=== PATIENT | male | born 1980 | race Caucasian/White ===

== ENCOUNTER 2019-10-18 12:16 | Emergency (ER) | payer OTHER ==
[~2019-10-18] VITALS: Ht 172.7 cm; Wt 75.0 kg
[~2019-10-18 12:16] MED LIST: ASPIRIN 81M81 MG/TA2; DEPAKOTE 250MG250 MG PO; LORTAB 7.5/5001 TAB PO; MINIPRESS2 MG PO; NORCO 325 MG-51 TAB PO; PERCOCET 325 MG1 TA2 PO; RITALIN10 MG; SEROQUEL 1100 MG/TAB PO; SEROQUEL 2525 MG/TAB; SEROQUEL300 MG PO; WELLBUTRIN 100100 MG; [UNRECOGNIZED DRUG - OTHER] PO
[2019-10-18 12:53] VITALS: BP 140/91; TEMP 98.7
[2019-10-18 13:58] LABS: COLLECTION METHOD CLEAN CATCH
[2019-10-18 14:03] LABS: BASO % 0.3 % (0.0-2.0); EOS # 0.1 (0.0-0.7); EOS % 1.5 % (0-4.0); GRAN # 3.5 (1.4-6.5); GRAN % 58.6 % (42.2-75.2); HEMATOCRIT 40.9 % (42.0-52.0); HEMOGLOBIN 14.1 g/dl (13.5-18.0); LYMPH # 1.6 (1.2-3.4); LYMPH % 26.2 % (20.0-51.0); MEAN CELL VOLUME 85 fl (80.0-100.0); MEAN CORPUSCULAR HEMOGLOBIN 29 pg (27.0-31.0); MEAN CORPUSCULAR HGB CONC 35 g/dl (33.0-37.0); MEAN PLATELET VOLUME 9.3 fl (7.4-10.4); MONO # 0.8 (0.1-0.6); MONO % 13.2 % (1.7-9.3); PLATELET COUNT 272 K/mm3 (130-400); RED BLOOD COUNT 4.81 M/mm3 (4.20-5.60); REDCELL DISTRIBUTION WIDTH-CV 13.3 % (11.5-14.5)
[2019-10-18 14:10] LABS: MUCOUS Present /lpf; PH 6 (5-8); SQUAMOUS EPITHELIAL None Seen /hpf; URINE APPEARANCE Hazy; URINE BACTERIA None Seen /hpf; URINE BILIRUBIN Negative (NEGATIVE); URINE BLOOD Negative (NEGATIVE); URINE COLOR Yellow; URINE GLUCOSE Negative (NEGATIVE); URINE KETONE Negative (NEGATIVE); URINE LEUKOCYTE ESTERASE Negative (NEGATIVE); URINE NITRATE Negative (NEGATIVE); URINE PROTEIN(semi-quant) Negative (NEGATIVE); URINE RBC 0-2 /hpf; URINE UROBILINOGEN Negative (NEGATIVE)
[2019-10-18 14:11] LABS: CALCIUM 9.2 mg/dL (8.4-10.2); CREATININE, serum 0.94 (0.66-1.25); POTASSIUM 4.4 mmol/L (3.4-5.0)
[2019-10-18] MEDS ORDERED: CIPRO 500MG TA500 MG PO (15:48)
[2019-10-18] MEDS ORDERED: NORCO 325 MG-51 TAB PO (15:48)
[2019-10-18 16:02] VITALS: PULSE 71
== END 2019-10-18 16:02 | disposition home or self-care (01) ==
LOC: COL.ER 12:16
PROVIDERS: Emergency Medicine
DX: R10.30 Lower abdominal pain, unspecified (principal); Z79.82 Long term (current) use of aspirin
CPT/HCPCS: J1170; J1885; Q9967

== ENCOUNTER 2020-02-13 22:43 | Emergency (ER) | payer OTHER, MEDICARE ==
[~2020-02-13] VITALS: Ht 172.7 cm; Wt 72.7 kg
[~2020-02-13 22:43] MED LIST changes: +CIPRO 500MG TA500 MG PO
[2020-02-13 22:49] VITALS: BP 126/81; PULSE 94; TEMP 98.1
[2020-02-13] MEDS ORDERED: ZENZEDI5 MG (22:55)
[2020-02-13] MEDS ORDERED: PROZAC 10MG10 MG (22:55)
[2020-02-13] MEDS ORDERED: SEROQUEL50 MG (22:56)
[2020-02-13] MEDS ORDERED: ATARAX 10MG10 MG/TAB (22:56)
[2020-02-13] MEDS ORDERED: ATIVAN 0.50.5 MG/TAB (22:57)
[2020-02-13] MEDS ORDERED: IMITREX 25MG TA25 MG (22:57)
[2020-02-13] MEDS ORDERED: DOXYCYCLINE 10100 MG PO (23:08)
== END 2020-02-13 23:29 | disposition home or self-care (01) ==
LOC: COL.ER 22:43
DX: S50.862A Insect bite (nonvenomous) of left forearm, initial encounter (principal); Z88.8 Allergy status to other drugs, medicaments and biological substances; W57.XXXA Bitten or stung by nonvenomous insect and other nonvenomous arthropods, initial encounter

== ENCOUNTER 2020-09-08 19:11 | Emergency (ER) | payer MEDICARE, OTHER ==
[~2020-09-08] VITALS: Ht 172.7 cm; Wt 72.7 kg
[~2020-09-08 19:11] MED LIST changes: +ATARAX 10MG10 MG/TAB; +ATIVAN 0.50.5 MG/TAB; +DOXYCYCLINE 10100 MG PO; +IMITREX 25MG TA25 MG; +PROZAC 10MG10 MG; +SEROQUEL50 MG; +ZENZEDI5 MG
[2020-09-08 19:27] VITALS: BP 146/99; PULSE 98; TEMP 98.3
== END 2020-09-08 21:00 | disposition home or self-care (01) ==
LOC: COL.ER 19:11
DX: T15.01XA Foreign body in cornea, right eye, initial encounter (principal); Z88.8 Allergy status to other drugs, medicaments and biological substances; W45.8XXA Other foreign body or object entering through skin, initial encounter

== ENCOUNTER 2021-07-13 19:35 | Inpatient (IN) | payer MEDICARE, OTHER ==
[~2021-07-13] VITALS: Ht 172.7 cm; Wt 81.8 kg
[2021-07-13 20:01] LABS: BASO % 0.3 % (0.0-2.0); EOS # 0.2 K/mm3 (0.0-0.7); EOS % 1.9 % (0-4.0); GRAN # 8.1 K/mm3 (1.4-6.5); GRAN % 73.2 % (42.2-75.2); HEMATOCRIT 38.7 % (42.0-52.0); HEMOGLOBIN 13.4 g/dl (13.5-18.0); LYMPH # 1.4 K/mm3 (1.2-3.4); MEAN CELL VOLUME 85 fl (80.0-100.0); MEAN CORPUSCULAR HEMOGLOBIN 30 pg (27.0-31.0); MEAN CORPUSCULAR HGB CONC 35 g/dl (33.0-37.0); MONO # 1.2 K/mm3 (0.1-0.6); MONO % 10.8 % (1.7-9.3); PLATELET COUNT 327 K/mm3 (130-400); RED BLOOD COUNT 4.53 M/mm3 (4.20-5.60); REDCELL DISTRIBUTION WIDTH-CV 13.5 % (11.5-14.5)
[2021-07-13 20:18] LABS: ALANINE AMINOTRANSFERASE 70 U/L (0-55); ALBUMIN 4.3 gm/dL (3.5-5.0); ALKALINE PHOSPHATASE 62 U/L (40-150); ANION GAP 13 mmol/L (7-16); AST,SGOT 96 U/L (5-34); BILIRUBIN,TOTAL 0.5 mg/dL (0.2-1.2); BLOOD UREA NITROGEN 18 mg/dL (9-21); CALCIUM 9.7 mg/dL (8.4-10.2); CARBON DIOXIDE 24 mmol/L (22-29); CHLORIDE 102 mmol/L (98-107); CREATININE, serum 1.35 mg/dL (0.72-1.25); GLUCOSE 96 mg/dL (70-99); POTASSIUM 4.7 mmol/L (3.5-4.5); SODIUM 139 mmol/L (136-145); TOTAL PROTEIN 7.4 gm/dL (6.2-8.1)
[2021-07-13 20:19] LABS: ALCOHOL(ethanol),MEDICAL < 10 mg/dL (0-10)
[2021-07-13] MEDS ORDERED: EXCEDRIN1 TAB PO (23:16)
[2021-07-13] MEDS ORDERED: INDERAL LA 80MG80 MG PO (23:16)
[2021-07-13] MEDS ORDERED: MAGIC MOUTH PO (23:18)
[2021-07-13] MEDS ORDERED: OPTIVE 0.5%-0.915 ML OP (23:19)
[2021-07-13] MEDS ORDERED: KLONOPIN 0.5MG0.5 MG PO (23:20)
[2021-07-13] MEDS ORDERED: DEPAKOTE ER 50500 MG PO (23:21)
[2021-07-13] MEDS ORDERED: NUPERCAINAL OIN30 GM RC (23:21)
[2021-07-13] MEDS ORDERED: PEPCID 20MG TAB20 MG PO (23:21)
[2021-07-13] MEDS ORDERED: PROZAC 10MG10 MG PO (23:22)
[2021-07-13] MEDS ORDERED: HALDOL 2MG T2 MG/TAB PO (23:22)
[2021-07-13] MEDS ORDERED: ANUSOL HC CREAM30 GM TP (23:23)
[2021-07-13] MEDS ORDERED: NIZORAL CR 30GM TOP (23:23)
[2021-07-13] MEDS ORDERED: SYNTHROID0.05 MG/TA PO (23:24)
[2021-07-13] MEDS ORDERED: REMERON30 MG PO (23:24)
[2021-07-13] MEDS ORDERED: NAPROSYN500 MG PO (23:24)
[2021-07-13] MEDS ORDERED: PHENERGAN 25 TA25 MG PO (23:25)
[2021-07-13] MEDS ORDERED: MIRALAX PA17 GM/Dose PO (23:25)
[2021-07-13] MEDS ORDERED: SEROQUEL400 MG PO (23:26)
[2021-07-13] MEDS ORDERED: TUCKS50% TP (23:27)
[2021-07-13] MEDS ORDERED: DEEP SEA 45 ML45 ML NS (23:27)
[2021-07-13] MEDS ORDERED: IMITREX100 MG PO (23:27)
[2021-07-14] VITALS (9 sets, daily range): BP systolic 104–117; BP diastolic 46–68; PULSE 74–101; TEMP 97.9–99.2
[2021-07-14 05:23] LABS: BASO % 0.2 % (0.0-2.0); EOS # 0.1 K/mm3 (0.0-0.7); EOS % 0.6 % (0-4.0); GRAN % 74.5 % (42.2-75.2); LYMPH # 0.9 K/mm3 (1.2-3.4); LYMPH % 9.8 % (20.0-51.0); MEAN CELL VOLUME 88 fl (80.0-100.0); MEAN CORPUSCULAR HEMOGLOBIN 30 pg (27.0-31.0); MEAN CORPUSCULAR HGB CONC 34 g/dl (33.0-37.0); MEAN PLATELET VOLUME 9.1 fl (7.4-10.4); MONO # 1.4 K/mm3 (0.1-0.6); MONO % 14.5 % (1.7-9.3); PLATELET COUNT 242 K/mm3 (130-400); RED BLOOD COUNT 4.05 M/mm3 (4.20-5.60)
[2021-07-14 05:24] LABS: HEMATOCRIT 35.5 % (42.0-52.0)
[2021-07-14 05:30] LABS: INR 1.2 (0.8-3.0); PROTHROMBIN TIME 13.2 SECONDS (9.7-12.8)
--- NOTE | 2021-07-14 06:39 | NUR ---
PT ARRIVED FROM ED PER BED. DR MOMIN HERE. TOOK OUT TRACTION FROM UNDER PT. SEE MAR FOR PAIN MED GIVEN. O2 2L N/C. ABLE TO OBTAIN FAINT LT PEDAL PULSES WITH DOPPLER,
[2021-07-14 08:33] LABS: CALCIUM 8.9 mg/dL (8.4-10.2); CREATININE, serum 1.1 mg/dL (0.72-1.25); POTASSIUM 4.3 mmol/L (3.5-4.5)
--- NOTE | 2021-07-14 09:15 | NUR ---
Attempted x1 to obtain EKG from [facility], states they are busy and will obtain EKG if time allows.
--- NOTE | 2021-07-14 12:12 | NUR ---
To surgery with surgical staff at this time. Howard catheter placed per Drs order at 1115, immediate return of clear castillo urine returned. Surgical consent signed by spouse with patients verbal permission. Report called to Efren Cordoba CRNA.
--- NOTE | 2021-07-14 14:03 | NUR ---
bag worker met with patient's Diana ([phone]) due to the patient being in surgery. reports that prior to this, the patient has been fully independent with his ADL's and does not utilize any DME to assist with mobility. [facility] [place] [facility]. [facility]. Unknown at this time if Dr. Grullon is going to set up therapy through his clinic or if the patient will need outpatient therappy through . Discharge plan: Pending PT/OT rec's.
[2021-07-14] MEDS ORDERED: TYLENOL 325MG325 MG PO (14:44)
[2021-07-14] MEDS ORDERED: NIZORAL SHAMPO120 M1 TP (14:47)
[2021-07-14] MEDS ORDERED: [UNRECOGNIZED DRUG - OTHER] TP (14:48)
[2021-07-14] MEDS ORDERED: PATADAY5 ML OP (14:49)
--- NOTE | 2021-07-14 17:37 | NUR ---
Patient returns post op at 1650. Left hip dressing CDI. Patient drowsy, awakens to pain stimuli. Post op checks initiated. Spouse at bedside.
--- NOTE | 2021-07-14 19:00 | NUR ---
PT RESTING BUT WAKES IN PAIN. SEE MAR FOR ANY PAIN MEDS GIVEN. 02 2L NC. AT BEDSIDE. VERY SUPPORTIVE. PT STARTING TO HAVE FEELING IN LEGS. FEET COOL TO TOUCH. LT PEDAL PULSE PRESENT WITH DOPPLER. TOES PALE BUT PINK. ABLE TO MOVE TOES. CALL LIGHT IN REACH. BED ALARM SET.
--- NOTE | 2021-07-14 22:17 | NUR ---
UA OBTAINED FROM AGUILAR AND SENT TO LAB.
[2021-07-14 22:24] LABS: COLLECTION METHOD CLEAN CATCH
[2021-07-14 22:31] LABS: MUCOUS Present /lpf; PH 5 (5-8); SQUAMOUS EPITHELIAL 0-2 /hpf; URINE APPEARANCE Hazy; URINE BACTERIA None Seen /hpf; URINE BILIRUBIN Negative (NEGATIVE); URINE BLOOD Negative (NEGATIVE); URINE COLOR Yellow; URINE GLUCOSE Negative (NEGATIVE); URINE KETONE Negative (NEGATIVE); URINE LEUKOCYTE ESTERASE Negative (NEGATIVE); URINE NITRATE Negative (NEGATIVE); URINE PROTEIN(semi-quant) 1+ (NEGATIVE); URINE UROBILINOGEN Negative (NEGATIVE)
[2021-07-15] VITALS (11 sets, daily range): BP systolic 84–111; BP diastolic 44–58; PULSE 67–83; TEMP 97.6–98.9
--- NOTE | 2021-07-15 04:02 | NUR ---
PT HAS HX SLEEP APNEA. O2 SAT MONITORING PRN DONE. PT WAKES TO SPEECH BUT RETURNS TO SLEEP. PAIN UNDER CONTROL. LT PEDAL PULSE FAINT BUT TOES WARM. ABLE TO MOVE TOES.
--- NOTE | 2021-07-15 05:17 | NUR ---
Pt wakes to verbal stimuli. Able to take ex tylenol w/o difficulty.
[2021-07-15 09:30] LABS: HEMATOCRIT 23.6 % (42.0-52.0)
[2021-07-15 09:47] LABS: ALBUMIN 2.9 gm/dL (3.5-5.0); CALCIUM 7.8 mg/dL (8.4-10.2); CREATININE, serum 1.04 mg/dL (0.72-1.25); PHOSPHOROUS 3.1 mg/dL (2.3-4.7); POTASSIUM 4.2 mmol/L (3.5-4.5)
--- NOTE | 2021-07-15 10:15 | NUR ---
Patient awake. He worked with therapy & pain increased. 06/25. Roxicodone per orders. aware of hypotension. Bolus per orders. Inderal held. Call to & he was made aware of H&H & okayed to give Lovenox. IVf per orders.
--- NOTE | 2021-07-15 12:40 | NUR ---
Patient at bedside. lunch ordered. Plan of care reivewed. Spoke to Dr.Jain ansariing patient sedation. roxicocodne dose decreased. Scheduled tyelnol given. O2 needs decreased. Will monitor.
[2021-07-15 13:30] LABS: HEMATOCRIT 22.9 % (42.0-52.0); HEMOGLOBIN 7.9 g/dl (13.5-18.0)
--- NOTE | 2021-07-15 15:44 | NUR ---
Patient resting soundly. Blood transfusion started per orders. We reviewed signs & symptoms of a reaction. Blood per policy. verified with Yola Kelly
--- NOTE | 2021-07-15 19:00 | NUR ---
PT RESTING COMFORTABLY AT THIS TIME. O2 3L NC. NO DISTRESS.
--- NOTE | 2021-07-15 19:06 | NUR ---
Patient resting in bed. Patient tolerated blood transfusion. Vitals stable. Patient at bedside & we assisted patient with hygiene. Patient brushed his teeth. Warm wipes for hygiene. Patient assisted use warm shower cap & combed patients hair. Patient cuevas removed per request & orders. Teds off for a break. Scds on. Ivf per orders. Ice pack to left thigh. Thigh dressing CDI. Bedside report to Radha MORRIS
[2021-07-15 21:04] LABS: HEMATOCRIT 28.7 % (42.0-52.0); HEMOGLOBIN 9.9 g/dl (13.5-18.0)
--- NOTE | 2021-07-15 21:17 | NUR ---
SEE MAR FOR PAIN MED GIVEN.
[2021-07-16] VITALS (7 sets, daily range): BP systolic 104–142; BP diastolic 53–70; PULSE 81–104; TEMP 98.3–99.4
--- NOTE | 2021-07-16 00:45 | NUR ---
PT ATTEMPTED TO VOID. UNABLE AT THIS TIME.. NO DISTENTION NOTED.
--- NOTE | 2021-07-16 02:28 | NUR ---
PT UNABLE TO VOID POST AGU[facility] DC. BLADDER SCANNED WITH 760CC RETENTION. CALLED MAR LOYD FOR STRAT CATH ORDER. STRAT CATH WITH IMMEDIATE RETURN OF CLEAR YELLOW 1000CC URINE.
--- NOTE | 2021-07-16 06:45 | NUR ---
Pt. resting in bed w/ eyes closed. This RN introduced self to pt. and explained his night nurse was going home. Pt. denies needs, call light and belongings in reach.
[2021-07-16 09:08] LABS: BASO % 0.4 % (0.0-2.0); EOS # 0.2 K/mm3 (0.0-0.7); EOS % 4.7 % (0-4.0); GRAN # 3.1 K/mm3 (1.4-6.5); GRAN % 61.2 % (42.2-75.2); LYMPH # 0.9 K/mm3 (1.2-3.4); LYMPH % 18.1 % (20.0-51.0); MEAN CELL VOLUME 87 fl (80.0-100.0); MEAN CORPUSCULAR HGB CONC 34 g/dl (33.0-37.0); MEAN PLATELET VOLUME 9.5 fl (7.4-10.4); MONO # 0.8 K/mm3 (0.1-0.6); MONO % 15.4 % (1.7-9.3); PLATELET COUNT 149 K/mm3 (130-400); RED BLOOD COUNT 2.92 M/mm3 (4.20-5.60)
[2021-07-16 09:12] LABS: HEMATOCRIT 25.5 % (42.0-52.0); HEMOGLOBIN 8.6 g/dl (13.5-18.0); MEAN CORPUSCULAR HEMOGLOBIN 29 pg (27.0-31.0)
[2021-07-16 09:24] LABS: ALBUMIN 2.5 gm/dL (3.5-5.0); CALCIUM 7.6 mg/dL (8.4-10.2); CREATININE, serum 0.71 mg/dL (0.72-1.25); MAGNESIUM 1.8 mg/dL (1.6-2.6); PHOSPHOROUS 2.1 mg/dL (2.3-4.7)
[2021-07-16 14:14] LABS: HEMOGLOBIN 9.1 g/dl (13.5-18.0)
--- NOTE | 2021-07-16 18:18 | NUR ---
Pt. progressing w/ plan of care. IVF discontinued today. Supportive visited today. Pt. reports pain is tolerable when at rest. Pt. makes needs known. Good urine output today. Call light and belongings in reach.
[2021-07-16 19:26] LABS: HEMATOCRIT 24.5 % (42.0-52.0); HEMOGLOBIN 8.6 g/dl (13.5-18.0)
--- NOTE | 2021-07-16 20:30 | NUR ---
PT RESTING IN BED AWAKE AND ALERT. TEDS/ SCD'S ON BILAT. PT HAS GOOD SENSATION TO LLE. ABLE TO MOVE ANKLE. NO RESP DISTRESS. O2 2L NC. HX YELITZA. SEE MAR FOR OXYCODONE GIVEN. PT VOIDING W/O DIFFICULTY PER URINAL. REPOSITIONED FOR COMFORT. PT INSTRUCTED TO USE IS FREQ X10 EACH TIME. PT AGREEABLE. CALL LIGHT IN REACH.
[2021-07-17] VITALS (7 sets, daily range): BP systolic 115–138; BP diastolic 60–73; PULSE 70–107; TEMP 98.1–99.6
[2021-07-17 06:12] LABS: BASO % 0.2 % (0.0-2.0); EOS # 0.3 K/mm3 (0.0-0.7); EOS % 5.9 % (0-4.0); GRAN % 57.1 % (42.2-75.2); LYMPH # 1.2 K/mm3 (1.2-3.4); MEAN CELL VOLUME 85 fl (80.0-100.0); MEAN CORPUSCULAR HGB CONC 35 g/dl (33.0-37.0); MEAN PLATELET VOLUME 9.4 fl (7.4-10.4); MONO # 0.8 K/mm3 (0.1-0.6); MONO % 14.4 % (1.7-9.3); PLATELET COUNT 171 K/mm3 (130-400); RED BLOOD COUNT 2.94 M/mm3 (4.20-5.60); REDCELL DISTRIBUTION WIDTH-CV 13.9 % (11.5-14.5)
[2021-07-17 06:15] LABS: HEMOGLOBIN 8.7 g/dl (13.5-18.0); MEAN CORPUSCULAR HEMOGLOBIN 30 pg (27.0-31.0)
[2021-07-17 06:43] LABS: ALBUMIN 2.5 gm/dL (3.5-5.0); CREATININE, serum 0.73 mg/dL (0.72-1.25); MAGNESIUM 1.8 mg/dL (1.6-2.6); PHOSPHOROUS 3.3 mg/dL (2.3-4.7); POTASSIUM 3.9 mmol/L (3.5-4.5)
--- NOTE | 2021-07-17 08:08 | NUR ---
Patient resting in bed. Breakfast ordered. Denies nausae. Patient goals to get out of bed more today & get to the bathroom. Reports positive flatus. One tab Roxicodone in anticipation of therapy this am. Left thigh gauze dressing CDI. Teds & Scds Ble. Will monitor.
--- NOTE | 2021-07-17 09:43 | NUR ---
Patient up in chair. Per hospitalist request attempted to place patient on room air. O2 saturations 86%. Patient placed back on 2L. made aware. Inderal resumed & given per orders. Will closely monitor
--- NOTE | 2021-07-17 10:08 | NUR ---
Initial visit; Patient thanked Prescription Benefit Specialist for looking in on him and offering prayer and God's blessings.
--- NOTE | 2021-07-17 11:55 | NUR ---
Patient at bedside. Plan of care reviewed & questions answered. Patient assisted to bedside commode with walker & gaitbelt. Stressed the importance of 50 percent weight bearing.
[2021-07-17 12:53] LABS: HEMATOCRIT 25.4 % (42.0-52.0); HEMOGLOBIN 8.5 g/dl (13.5-18.0)
--- NOTE | 2021-07-17 13:58 | NUR ---
Patient to Ct scan. I made hospitalsist aware patient requested to speak with him, I also reported H&H level. Patient reports a headache to the back of his head. Home Imetrx dose given per orders & patietn request. Patient did well with lunch. Will monitor.
--- NOTE | 2021-07-17 14:43 | NUR ---
Devulcanizer Charger followed up with patient and his , Diana about need for a front wheeled walker. Diana states she will check to see if patient has one at home, then if not patient is agreeable to have one ordered at [facility].
--- NOTE | 2021-07-17 16:00 | NUR ---
Patient up to bedside commode. Large BM. Patient now resting in bed. Headache relieved. Patient started on antibiotics and fluids per orders from Ct scan results. Will monitor.
--- NOTE | 2021-07-17 18:14 | NUR ---
Patient refused tylenol & dinner this evening. No needs at this time. WIll report off to nightnurse
--- NOTE | 2021-07-17 18:49 | NUR ---
RECEIVED CHANGE OF SHIFT REPORT FROM DAY SHIFT NURSE. PATIENT'S SPOUSE AT BEDSIDE. IV FLUIDS INFUSING WITH NO PROBLEMS.
--- NOTE | 2021-07-17 19:49 | NUR ---
PATIENT REQUESTED TO HAVE LLE READJUSTED, ASSIST SPOUSE IN ELEVATING LLE REQUESTED TO PATIENT'S COMFORT, RENEWED ICE PACK TO L HIP. COMPLAINED OF HEADACHE TO BACK OF HEAD, AGREED TO HAVE HEATING PAD PLACED TO AREA OF COMPLAINT. REQUESTED AND GIVEN PAIN MEDS, SEE MAR FOR MED GIVEN.
[2021-07-17 20:58] LABS: HEMATOCRIT 27.2 % (42.0-52.0); HEMOGLOBIN 9.4 g/dl (13.5-18.0)
[2021-07-18] VITALS (7 sets, daily range): BP systolic 1–125; BP diastolic 50–76; PULSE 64–92; TEMP 98–99.5
--- NOTE | 2021-07-18 02:41 | NUR ---
PATIENT SLEEPING, DOES NOT WAKE WHEN DOOR TO ROOM IS OPENED BY STAFF NURSE ON ROUNDS. BREATHING NONLABORED AND EVEN, OXYGEN PER NC CONTINUES. IV FLUIDS INFUSING WITH NO PROBLEMS.
--- NOTE | 2021-07-18 06:23 | NUR ---
REFUSED OFFER OF NARCOTIC PAIN MEDS AT THIS TIME, REPORTS WANTS PAIN MEDS CLOSER TO PT TREATMENT. DENIES ANY OTHER NEEDS AT THIS TIME.
[2021-07-18 06:41] LABS: MEAN CELL VOLUME 87 fl (80.0-100.0); MEAN CORPUSCULAR HGB CONC 34 g/dl (33.0-37.0); PLATELET COUNT 201 K/mm3 (130-400); RED BLOOD COUNT 2.81 M/mm3 (4.20-5.60); REDCELL DISTRIBUTION WIDTH-CV 14.1 % (11.5-14.5)
[2021-07-18 06:43] LABS: HEMATOCRIT 24.5 % (42.0-52.0); HEMOGLOBIN 8.4 g/dl (13.5-18.0); MEAN CORPUSCULAR HEMOGLOBIN 30 pg (27.0-31.0)
--- NOTE | 2021-07-18 07:06 | NUR ---
CHANGE OF SHIFT REPORT GIVEN TO DAY SHIFT NURSE, CLAUDIA MORRIS.
[2021-07-18 07:17] LABS: CALCIUM 8.2 mg/dL (8.4-10.2); CREATININE, serum 0.76 mg/dL (0.72-1.25); POTASSIUM 4.3 mmol/L (3.5-4.5)
--- NOTE | 2021-07-18 09:33 | NUR ---
Follow-up; Patient appeared glad to see this morning though occupied at the time. greeted him and will look in on him another time.
--- NOTE | 2021-07-18 10:00 | NUR ---
Patient alert and oriented, answers questions appropriately. See assessment. LLE dressing changed, gauze and tegaderm reapplied. LLE incisions x3 with edges well approximated, no redness or drainage noted. 50% weight bearing to LLE. ARI hose and SCDs in place. Patient c/o "sticker" under skin mid left flank, foam dressing applied. Patient c/o bruising to penis, able to urinate, no pain, minimal edema noted. Post op exercises reviewed with patient. No c/o at this time.
--- NOTE | 2021-07-18 11:53 | NUR ---
Patient ambulated 30ft in hallway, 50% weight bearing LLE. Gait belt and FWW utilized. ARI hose in place. No oxygen used for ambulation. Oximeter post ambulation is 98% r/a. Will leave oxygen off at this time and recheck prn.
--- NOTE | 2021-07-18 14:00 | NUR ---
RACH Mahoney notified of increased pain to groin and hip.
--- NOTE | 2021-07-18 16:28 | NUR ---
Radio Assembler followed up with patient and patient's about front wheeled walker. Patient states he will need one ordered. SW sent order for FWW to [place] [facility].
--- NOTE | 2021-07-18 16:40 | NUR ---
RACH Mahoney notified of increased pain to groin and left knee and hip. Stated she will await xrays to be done per ortho.
--- NOTE | 2021-07-18 18:25 | NUR ---
Belkis LOYD notified of increased pain and "popping" in left knee and hip. Orders received.
--- NOTE | 2021-07-18 18:30 | NUR ---
RACH Galo notified of increased pain, SOA and anxiety. Clover at bedside. See orders.
--- NOTE | 2021-07-18 19:15 | NUR ---
Report received from ARTURO Quick. Patient had an eventful shift change, very angry, throwing things around the room. The patient's is at bedside. Pt currently denies any problems as he returned from his ABD CT scan. No other concerns at this time.
--- NOTE | 2021-07-18 19:25 | NUR ---
Approx 1800 patients called the nurses desk from an outside line, stating patient is in severe pain and can not breathe. This nurse and CASEWORKER entered room, patient had thrown all items on his bed and overbed table on floor. Water, coffee, soda was on the floor. Patient was hyperventilating, diaphoretic and stating he was in an "incredible amount of pain in his groin and could not get a breath." Vital signs were obtained, oxygen applied, Clover LOYD notified. at bedside, stating the orthopedic surgeon needed to come into see patient. Relayed to that Hospitalist RACH was at bedside and attending to patient. upset at patients hospital course, states "I should have taken him to my doctor, he needs to get out of here". Reinterated to patient and spouse that he is receiving the appropriate care. Patient received Morphine and Ativan per Drs order. Taken to CT scan. Patient calmed down after receving CT, chatted about random things on way back to room. No other c/o at this time.
[2021-07-19 04:04] VITALS: BP 110/60; PULSE 89; TEMP 98.6
--- NOTE | 2021-07-19 05:26 | NUR ---
PT HAS HAD UNEVENTFUL NIGHT. REPOSITIONED PATIENTS LEFT LEG DUE TO PAIN, AND PT REPORTED IT MADE IT FEEL MUCH BETTER, THE PATIENT HAS BEEN SLEEPING SOUNDLY SINCE MIDNIGHT. NO FURTHER CONCERNS.
[2021-07-19 06:38] LABS: MEAN CELL VOLUME 86 fl (80.0-100.0); MEAN CORPUSCULAR HGB CONC 34 g/dl (33.0-37.0); PLATELET COUNT 247 K/mm3 (130-400); RED BLOOD COUNT 3.02 M/mm3 (4.20-5.60); REDCELL DISTRIBUTION WIDTH-CV 14.2 % (11.5-14.5)
[2021-07-19 06:39] LABS: HEMATOCRIT 26.1 % (42.0-52.0); HEMOGLOBIN 8.8 g/dl (13.5-18.0); MEAN CORPUSCULAR HEMOGLOBIN 29 pg (27.0-31.0)
[2021-07-19 07:09] LABS: ALBUMIN 2.9 gm/dL (3.5-5.0); BILIRUBIN,TOTAL 0.7 mg/dL (0.2-1.2); CALCIUM 8.4 mg/dL (8.4-10.2); CREATININE, serum 0.82 mg/dL (0.72-1.25); POTASSIUM 4.4 mmol/L (3.5-4.5); TOTAL PROTEIN 5.7 gm/dL (6.2-8.1)
[2021-07-19 07:45] VITALS: BP 116/68; PULSE 87; TEMP 98.9
--- NOTE | 2021-07-19 09:44 | NUR ---
Patient alert and oriented, answers questions appropriately. See assessment. LLE with dressing CDI, no redness or drainage noted. LLE edema 2+. TTWB to LLE. Patient non compliant with cares, urinates in random cups and glasses at bedside and leaves them on table, not calling staff for assistance. Patient also took self into shower this morning, without calling for assistance. Patient is short with answers and refuses to talk to staff. No other c/o at this time.
--- NOTE | 2021-07-19 10:00 | NUR ---
Patient alert and oriented, answers questions appropriately. See assessment. LLE dressing CDI, no redness or drainage noted. LLE with 2+ edema noted, pulses palpable, sensation intact. Lungs CTA, no c/o SOA, on room air. States wants to go home. No other c/o at this time.
[2021-07-19] MEDS ORDERED: ZITHROMAX500 M2 PO (10:06)
[2021-07-19] MEDS ORDERED: ROXICODONE 55 MG/TAB PO (10:07)
[2021-07-19] MEDS ORDERED: ASPIRIN 32325 MG/TAB PO (10:15)
--- NOTE | 2021-07-19 13:17 | NUR ---
Left hip incisions x3 dressing changed. Incisions CDI, no redness or drainage, edges well approximated, crystal intact.
--- NOTE | 2021-07-19 13:35 | NUR ---
Discharge instructions reviewed with patient and spouse, verbalized understanding. Discharged via wheelchair to auto/home with spouse at 1330.
--- NOTE | 2021-07-19 13:35 | NUR ---
Customer Insight Analyst attended clinical rounds with the team and patient to discharge home today. BRAN followed up with patient to discuss outpatient therapy vs home health. Patient would prefer Home Health services and advised he wanted to use [facility] as he and his know one of the physical therapists there. BRAN advised patient that per Tracie at [facility], patient's FWW will be available for pickup at noon. Patient's advised she knows where [facility] is located. BRAN contacted Rose at [facility] and faxed referral with orders. Rose confirmed it was received and advised that since patient receives primary care through the [facility] it may take a week or so to set up home health services. Rose advised she is going to reach out to patient's . Discharge Plan: Home with HH
== END 2021-07-19 13:30 | disposition home health service (06) | DRG 480 ==
LOC: COL.ER 19:35 → SURG 23:11
PROVIDERS: Nurse Practitioner Family; Orthopaedic Surgery; Personal Emergency Response Attendant; Physician Assistant; ADMIT Internal Medicine
PROC: 0QS936Z Reposition Left Femoral Shaft with Intramedullary Internal Fixation Device, Percutaneous Approach (ICD-10-PCS; principal; 2021-07-14 13:00)
DX: S72.362A Displaced segmental fracture of shaft of left femur, initial encounter for closed fracture (principal); J96.01 Acute respiratory failure with hypoxia; J18.9 Pneumonia, unspecified organism; N17.9 Acute kidney failure, unspecified; D62 Acute posthemorrhagic anemia; F43.10 Post-traumatic stress disorder, unspecified; T15.01XA Foreign body in cornea, right eye, initial encounter; E03.9 Hypothyroidism, unspecified; D64.9 Anemia, unspecified; E87.5 Hyperkalemia; N18.9 Chronic kidney disease, unspecified; G43.909 Migraine, unspecified, not intractable, without status migrainosus; G47.33 Obstructive sleep apnea (adult) (pediatric); Z87.820 Personal history of traumatic brain injury; V29.9XXA Motorcycle rider (driver) (passenger) injured in unspecified traffic accident, initial encounter; Y93.55 Activity, bike riding; Y92.410 Unspecified street and highway as the place of occurrence of the external cause
CPT/HCPCS: 99223-AI; 99232-AI; 99233-AI; 99239; A4314; A9284; C1713; J0690; J0696; J1170; J1650; J1940; J2060; J2250; J2270; J2370; J2704; J2795; J3010; J7030; J7040; J7050; P9016; Q9967

== ENCOUNTER 2021-07-31 19:07 | Emergency (ER) | payer MEDICARE, OTHER ==
[~2021-07-31] VITALS: Ht 172.7 cm; Wt 81.8 kg
[~2021-07-31 19:07] MED LIST changes: +ANUSOL HC CREAM30 GM TP; +ASPIRIN 32325 MG/TAB PO; +DEEP SEA 45 ML45 ML NS; +DEPAKOTE ER 50500 MG PO; +EXCEDRIN1 TAB PO; +HALDOL 2MG T2 MG/TAB PO; +IMITREX100 MG PO; +INDERAL LA 80MG80 MG PO; +KLONOPIN 0.5MG0.5 MG PO; +MAGIC MOUTH PO; +MIRALAX PA17 GM/Dose PO; +NAPROSYN500 MG PO; +NIZORAL CR 30GM TOP; +NIZORAL SHAMPO120 M1 TP; +NUPERCAINAL OIN30 GM RC; +OPTIVE 0.5%-0.915 ML OP; +PATADAY5 ML OP; +PEPCID 20MG TAB20 MG PO; +PHENERGAN 25 TA25 MG PO; +PROZAC 10MG10 MG PO; +REMERON30 MG PO; +ROXICODONE 55 MG/TAB PO; +SEROQUEL400 MG PO; +SYNTHROID0.05 MG/TA PO; +TUCKS50% TP; +TYLENOL 325MG325 MG PO; +ZITHROMAX500 M2 PO; +[UNRECOGNIZED DRUG - OTHER] TP
[2021-07-31] MEDS ORDERED: ELIQUIS 5MG PO (21:57)
[2021-07-31] MEDS ORDERED: CEPHALEXIN500 M1 PO (22:01)
[2021-07-31 22:08] VITALS: BP 126/84; PULSE 74
== END 2021-07-31 22:08 | disposition home or self-care (01) ==
LOC: COL.ER 19:07
DX: R22.42 Localized swelling, mass and lump, left lower limb (principal); F43.10 Post-traumatic stress disorder, unspecified; F31.9 Bipolar disorder, unspecified; G89.29 Other chronic pain; M54.50 Low back pain, unspecified; E03.9 Hypothyroidism, unspecified; F90.9 Attention-deficit hyperactivity disorder, unspecified type; Z79.891 Long term (current) use of opiate analgesic; Z79.899 Other long term (current) drug therapy; Z79.890 Hormone replacement therapy

== ENCOUNTER → 2021-08-01 | Outpatient (CLI) | payer MEDICARE, OTHER ==
[~2021-08-01] MED LIST changes: +CEPHALEXIN500 M1 PO; +ELIQUIS 5MG PO
== END ==
LOC: COL.VAS 09:37
DX: I82.811 Embolism and thrombosis of superficial veins of right lower extremity (principal)

== ENCOUNTER 2021-11-21 13:47 | Emergency (ER) | payer MEDICARE, OTHER ==
[~2021-11-21] VITALS: Ht 172.7 cm; Wt 72.7 kg
[2021-11-21 14:00] VITALS: TEMP 98.2
[2021-11-21] MEDS ORDERED: COUMADIN 1MG1 MG/TAB PO (16:00)
[2021-11-21] MEDS ORDERED: CEPHALEXIN500 M1 PO (16:26)
[2021-11-21 17:19] VITALS: PULSE 80
== END 2021-11-21 17:32 | disposition home or self-care (01) ==
LOC: COL.ER 13:47
DX: S66.222A Laceration of extensor muscle, fascia and tendon of left thumb at wrist and hand level, initial encounter (principal); T15.91XA Foreign body on external eye, part unspecified, right eye, initial encounter; W26.8XXA Contact with other sharp object(s), not elsewhere classified, initial encounter; W45.8XXA Other foreign body or object entering through skin, initial encounter

== ENCOUNTER → 2022-11-27 | Outpatient (CLI) | payer MEDICARE, OTHER ==
[~2022-11-27] MED LIST changes: +COUMADIN 1MG1 MG/TAB PO; +LEVSIN0.125 M1 PO
== END ==
LOC: COL.RAD 12:45
DX: R31.29 Other microscopic hematuria (principal); R10.2 Pelvic and perineal pain; R39.14 Feeling of incomplete bladder emptying

== ENCOUNTER → 2022-12-13 | Outpatient (CLI) | payer MEDICARE, OTHER | LOC: COL.RAD 12:40 | DX: M47.812 Spondylosis without myelopathy or radiculopathy, cervical region (principal); S06.9X9S Unspecified intracranial injury with loss of consciousness of unspecified duration, sequela; G43.109 Migraine with aura, not intractable, without status migrainosus; R29.2 Abnormal reflex; Z87.828 Personal history of other (healed) physical injury and trauma; X58.XXXS Exposure to other specified factors, sequela | CPT/HCPCS: A9575 ==

== ENCOUNTER 2023-10-04 06:33 | Emergency (ER) | payer MEDICARE, OTHER ==
[~2023-10-04] VITALS: Ht 172.7 cm; Wt 68.2 kg
[2023-10-04 06:44] VITALS: BP 139/89; TEMP 98.2
[2023-10-04] MEDS ORDERED: CEPHALEXIN500 M1 PO ×2 (07:24→09:26)
[2023-10-04] MEDS ORDERED: NORCO 325 MG-51 TAB PO ×2 (07:25→09:26)
[2023-10-04 08:24] VITALS: PULSE 65
== END 2023-10-04 08:24 | disposition home or self-care (01) ==
LOC: COL.ER 06:33
DX: H57.11 Ocular pain, right eye (principal); H57.89 Other specified disorders of eye and adnexa; Z87.891 Personal history of nicotine dependence